=== PATIENT | female | born 1980 | race Caucasian/White ===

== ENCOUNTER 2016-11-14 20:50 | Emergency (ER) | payer MEDICAID, OTHER ==
[~2016-11-14] VITALS: Ht 165.1 cm; Wt 53.1 kg
[~2016-11-14 20:50] MED LIST: ASCO500 PO; CLON1 PO; SOMA350T PO
[2016-11-14 20:55] VITALS: BP 94/56; PULSE 114; RESP 20; TEMP 98.4; O2SAT 100
[2016-11-14] MEDS ORDERED: SOMA350T PO (21:16)
[2016-11-14] MEDS ORDERED: CLON1TAB PO (21:16)
[2016-11-14 21:17] VITALS: RESP 18; O2SAT 100
--- NOTE | 2016-11-14 21:18 | PD ---
HPI Chief Complaint: Dizziness Time Seen by Provider: 21:01 Travel History International Travel<30 days: No Contact w/Intl Traveler<30days: No Traveled to known affect area: No History of Present Illness HPI 36-year-old female with multiple complaints. Patient complaining dizziness, generalized weakness, palpitation, slurred speech, headache, nausea, chest pain , abdominal pain. Patient states that symptoms started 3 months ago. Patient states that her chest pain is sharp stabbing pain intermittent pain localized to lower rib cage area. Patient denies any pain radiation. Patient denies any coughing congestion. Patient states that she has intermittent nausea but no vomiting or diarrhea. Patient states that she has intermittent sharp abdominal pain. Patient has history recurrent UTI and was treated recently with Z-Bronson. Patient states that she has intermittent numbness of the extremity. Patient denies any illicit drugs or alcohol abuse. Patient has history of anxiety and chronic back pain. Patient has been taking lorazepam and Soma. PFSH Past Medical History Arthritis: No Asthma: No Blood Disorders: No Anxiety: Yes Depression: Yes Heart Rhythm Problems: No Cancer: No Cardiovascular Problems: No High Cholesterol: No Chest Pain: No Congestive Heart Failure: No COPD: No Cerebrovascular Accident: No Diminished Hearing: No Endocrine: No GERD: Yes Genitourinary: Yes (poly cystic kidney disease) Headaches: No Hypertension: No Immune Disorder: No Musculoskeletal: Yes (COMPRESSION FX L1 2005- NO SURGERY) Neurologic: No Psychiatric: No Reproductive: No Respiratory: No Immunizations Current: No Migraines: No Myocardial Infarction: No Seizures: No Sleep Apnea: No ?: Not LMP: 11-07-16 : 3 Para: 1 : 2 Past Surgical History AICD: No Arteriovenous Shunt: No Insulin Pump: No Joint Replacement: No Pacemaker: No Other Surgery: Yes (1999--BREAST AUGMENTATION) Social History Alcohol Use: No Tobacco Use: Yes (occas. cigs) Substance Use: No Allergies-Medications (Allergen,Severity, Reaction): Coded Allergies: Sulfa (Verified Allergy, Mild, "HIVES,VOMITING", 11/14/16) Cipro (Verified Allergy, Unknown, N/V, 11/14/16) Reported Meds & Prescriptions Reported Meds & Active Scripts Active Reported Clonazepam 1 Mg Tab 1 Mg PO BID Soma (Carisoprodol) 350 Mg Tab 350 Mg PO QID PRN Review of Systems General / Constitutional: No: Fever Eyes: No: Visual changes HENT: Positive: Headaches Cardiovascular: Positive: Chest Pain or Discomfort, Palpitations Respiratory: No: Shortness of Breath Gastrointestinal: Positive: Nausea, Abdominal Pain Genitourinary: No: Dysuria Musculoskeletal: No: Pain Skin: No Rash Neurologic: No: Weakness Psychiatric: No: Depression Endocrine: No: Polydipsia Hematologic/Lymphatic: No: Easy Bruising Physical Exam Narrative GENERAL: Well-nourished, well-developed patient. SKIN: Warm and dry. HEAD: Normocephalic. EYES: No scleral icterus. No injection or drainage. Pupils 2 mm equal reactive. NECK: Supple, trachea midline. No JVD or lymphadenopathy. CARDIOVASCULAR: Regular rate and rhythm without murmurs, gallops, or rubs. RESPIRATORY: Breath sounds equal bilaterally. No accessory muscle use. GASTROINTESTINAL: Abdomen soft, non-tender, nondistended. MUSCULOSKELETAL: No cyanosis, or edema. BACK: Nontender without obvious deformity. No CVA tenderness. Neurologic exam normal. Data Data Last Documented VS Vital Signs Date Time Temp Pulse Resp B/P Pulse Ox O2 Delivery O2 Flow Rate FiO2 11/14/16 22:15 97 18 106/54 100 Room Air 11/14/16 20:55 98.4 Orders Electrocardiogram (11/14/16 21:11) Complete Blood Count With Diff (11/14/16 21:11) Comprehensive Metabolic Panel (11/14/16 21:11) Creatine Kinase (Cpk) (11/14/16 21:11) Troponin I (11/14/16 21:11) Urinalysis - C+S If Indicated (11/14/16 21:11) Thyroid Stimulating Hormone (11/14/16 21:11) Chest, Single Ap (11/14/16 21:11) Ct Brain W/O Iv Contrast(Rout) (11/14/16 21:11) Iv Access Insert/Monitor (11/14/16 21:11) Ecg Monitoring (11/14/16 21:11) Oximetry (11/14/16 21:11) Ed Urine Pregnancytest Poc (11/14/16 21:11) Drug Screen, Random Urine (11/14/16 21:11) Alcohol (Ethanol) (11/14/16 21:11) Labs Laboratory Tests Test 11/14/16 11/14/16 21:35 21:40 Urine Color YELLOW Urine Turbidity CLEAR Urine pH 7.0 Urine Specific [place] 1.029 Urine Protein NEG mg/dL Urine Glucose (UA) NEG mg/dL Urine Ketones TRACE mg/dL Urine Occult Blood NEG Urine Nitrite NEG Urine Bilirubin NEG Urine Leukocyte Esterase NEG Urine RBC 0-3 /hpf Urine WBC 6-8 /hpf Urine Squamous Epithelial 0-5 /hpf Cells Urine Mucus FEW /lpf Microscopic Urinalysis Comment CULT NOT INDICATED Urine Barbiturates Screen NEG Urine Amphetamines Screen NEG Urine Benzodiazepines Screen NEG Urine Cannabinoids Screen NEG White Blood Count 5.2 TH/MM3 Red Blood Count 4.16 MIL/MM3 Hemoglobin 12.6 GM/DL Hematocrit 38.6 % Mean Corpuscular Volume 92.9 FL Mean Corpuscular Hemoglobin 30.3 PG Mean Corpuscular Hemoglobin 32.6 % Concent Red Cell Distribution Width 13.1 % Platelet Count 210 TH/MM3 Mean Platelet Volume 8.8 FL Neutrophils (%) (Auto) 43.9 % Lymphocytes (%) (Auto) 49.2 % Monocytes (%) (Auto) 4.3 % Eosinophils (%) (Auto) 1.1 % Basophils (%) (Auto) 1.5 % Neutrophils # (Auto) 2.3 TH/MM3 Lymphocytes # (Auto) 2.5 TH/MM3 Monocytes # (Auto) 0.2 TH/MM3 Eosinophils # (Auto) 0.1 TH/MM3 Basophils # (Auto) 0.1 TH/MM3 CBC Comment DIFF FINAL Differential Comment Sodium Level 142 MEQ/L Potassium Level 3.4 MEQ/L Chloride Level 106 MEQ/L Carbon Dioxide Level 29.8 MEQ/L Anion Gap 6 MEQ/L Blood Urea Nitrogen 7 MG/DL Creatinine 0.68 MG/DL Estimat Glomerular Filtration 98 ML/MIN Rate Random Glucose 80 MG/DL Calcium Level 8.2 MG/DL Total Bilirubin 0.2 MG/DL Aspartate Amino Transf 13 U/L (AST/SGOT) Alanine Aminotransferase 18 U/L (ALT/SGPT) Total Protein 7.1 GM/DL Albumin 3.9 GM/DL Ethyl Alcohol Level LESS THAN 3 MG/DL MDM Medical Decision Making Medical Screen Exam Complete: Yes Emergency Medical Condition: Yes Interpretation(s) Last Impressions Chest X-Ray 11/14/161 Signed Impressions: Service Date/Time: Monday, November 14, 2016 21:24 - CONCLUSION: No acute disease. Mg James MD 22:15 PM. CBC within normal limit. WBC 5.2. 49 lymphocytes. Potassium 3.4. Calcium 8.2. UA 6-8 WBC. 22:33 PM. Cardiac enzymes are normal. TSH normal. Urine drug screen negative. Alcohol negative. CT scan of the brain negative acute pathology. Differential Diagnosis Differential diagnosis including viral syndrome, migraine headache, tension headache, cluster headache, atypical chest pain, angina, MN, PE, pneumothorax, gastritis, PUD, pancreatitis, cholecystitis, colitis, UTI, pyelonephritis. Narrative Course 36-year-old female with multiple complaints including headache, palpitation, chest pain, abdominal pain, nausea, numbness of extremity. KCl 20 mEq by mouth given. Diagnosis Primary Impression: Cephalgia Qualified Code: R51 - Nonintractable episodic headache, unspecified headache type Additional Impressions: Viral syndrome Hypokalemia Patient Instructions: General Instructions Additional Instructions: Encourage by mouth fluid. Eat potassium rich diet. Follow-up with personal physician. Return if persistent problem or worse. Med/Other Pt SpecificInfo: No Change to Meds Disposition: 01 DISCHARGE HOME Condition: Stable Trevor Kauffman MD Nov 14, 2016 21:18
--- NOTE | 2016-11-14 21:45 | RADHPO ---
EXAM DATE/TIME: 11/14/2016 21:24 [facility] COMPARISON: No previous studies available for comparison. INDICATIONS : Lower left side chest pain. Dizziness and numbness for three months. MEDICAL HISTORY : None. SURGICAL HISTORY : None. ENCOUNTER: Initial ACUITY: 3 months PAIN SCORE: 5/10 LOCATION: Left lower chest FINDINGS: A single view of the chest demonstrates the lungs to be symmetrically aerated without evidence of mas s, infiltrate or effusion. The cardiomediastinal contours are unremarkable. Osseous structures are intact. CONCLUSION: No acute disease. gM James MD on November 14, 2016 at 21:43 Board Certified Radiologist. This report was verified electronically.
[2016-11-14 21:52] LABS: AUTOMATED NEUTROPHIL # 2.3 TH/MM3 (1.8-7.7); BASOPHIL # 0.1 TH/MM3 (0-0.2); BASOPHIL % 1.5 % (0.0-2.0); EOSINOPHIL # 0.1 TH/MM3 (0-0.4); EOSINOPHIL % 1.1 % (0.0-4.0); HEMATOCRIT 38.6 % (35.0-46.0); HEMO FLAGS DIFF FINAL; LYMPH % 49.2 % (9.0-44.0); LYMPHOCYTE # 2.5 TH/MM3 (1.0-4.8); MEAN CELL VOLUME 92.9 FL (80.0-100.0); MEAN CORPUSCULAR HEMOGLOBIN 30.3 PG (27.0-34.0); MEAN CORPUSCULAR HGB CONC 32.6 % (32.0-36.0); MONO % 4.3 % (0.0-8.0); NEUT % 43.9 % (16.0-70.0); PLATELET COUNT 210 TH/MM3 (150-450); RED BLOOD COUNT 4.16 MIL/MM3 (4.00-5.30); RED CELL DISTRIBUTION WIDTH 13.1 % (11.6-17.2); WHITE BLOOD COUNT 5.2 TH/MM3 (4.0-11.0)
[2016-11-14 21:53] LABS: BLOOD, URINE NEG (NEG); GLUCOSE,URINE NEG (NEG); KETONE, URINE TRACE mg/dL (NEG); NITRITE,URINE NEG (NEG)
[2016-11-14 21:57] LABS: URINE COLOR YELLOW (YELLW/STRAW)
[2016-11-14 21:58] LABS: COMMENT (UR) CULT NOT INDICATED; CULTURE IF INDICATED CULT NOT INDICATED; MUCUS URINE FEW /lpf (OCC); RBC, URINE 0-3 /hpf (0-3); SQUAMOUS EPITHELIAL CELL URINE 0-5 /hpf (0-5)
[2016-11-14 22:06] LABS: CHLORIDE 106 MEQ/L (98-107); POTASSIUM 3.4 MEQ/L (3.5-5.1); SODIUM (NA) 142 MEQ/L (136-145)
[2016-11-14 22:09] LABS: AMPHETAMINE, URINE NEG (NEG)
[2016-11-14 22:10] LABS: BARBITURATES, URINE NEG (NEG)
[2016-11-14 22:11] LABS: ANION GAP 6 MEQ/L (5-15); BICARBONATE 29.8 MEQ/L (21.0-32.0); BLOOD UREA NITROGEN 7 MG/DL (7-18)
[2016-11-14 22:13] LABS: ALT (GPT) 18 U/L (10-53)
[2016-11-14 22:14] LABS: AST (GOT) 13 U/L (15-37); GLOMERULAR FILTRATION RATE 98 ML/MIN (>89)
[2016-11-14 22:15] VITALS: BP 106/54; PULSE 97; RESP 18; O2SAT 100
[2016-11-14 22:15] LABS: TOTAL BILIRUBIN ADULT 0.2 MG/DL (0.2-1.0)
[2016-11-14 22:16] LABS: ALKALINE PHOSPHATASE 45 U/L (45-117)
--- NOTE | 2016-11-14 22:19 | RADHPO ---
EXAM DATE/TIME: 11/14/2016 21:55 [facility] COMPARISON: CT BRAIN W/O CONTRAST, September 22, 2015, 12:45. INDICATIONS : Headache and dizziness for three months. RADIATION DOSE: 60.32 CTDIvol (mGy) MEDICAL HISTORY : None SURGICAL HISTORY : None. ENCOUNTER: Initial ACUITY: 3 months PAIN SCALE: 5/10 LOCATION: cranial TECHNIQUE: Multiple contiguous axial images were obtained of the head. Using automated exposure control and adj ustment of the mA and/or kV according to patient size, radiation dose was kept as low as reasonably a chievable to obtain optimal diagnostic quality images. FINDINGS: CEREBRUM: The ventricles are normal for age. No evidence of midline shift, mass lesion, hemorrhage or acute in farction. No extra-axial fluid collections are seen. POSTERIOR FOSSA: The cerebellum and brainstem are intact. The 4th ventricle is midline. The cerebellopontine angle i s unremarkable. EXTRACRANIAL: The visualized portion of the orbits is intact. SKULL: The calvaria is intact. No evidence of skull fracture. CONCLUSION: Normal examination. Gerard Amos MD on November 14, 2016 at 22:16 Board Certified Radiologist. This report was verified electronically.
[2016-11-14 22:29] LABS: COCAINE, URINE NEG (NEG)
[2016-11-14 22:33] LABS: CREATINE KINASE 79 U/L (26-192)
[2016-11-14] MEDS ORDERED: POTASSIUM CHLORIDE 20 MEQ CONTROLLED RELEASE TAB PO ONE (22:45)
[2016-11-14 23:53] VITALS: BP 100/61
--- NOTE | 2016-11-15 11:06 | EKG ---
Date Performed: 11/14/2016 Time Performed: 21:14:42 PTAGE: 36 years EKG: Sinus tachycardia. Poor R wave progression - probable normal variant Septal T wave changes are nonspecific Borderline ECG No significant change from prior electrocardiogram. PREVIOUS TRACING : 12/05/2013 01.28 DOCTOR: Yosef Cisse Interpretating Date/Time 11/15/2016 11:05:02
== END 2016-11-14 23:54 | disposition home or self-care (01) ==
LOC: PHED 20:50
DX: R51 Headache (principal); B34.9 Viral infection, unspecified; E87.6 Hypokalemia; R00.0 Tachycardia, unspecified; R42 Dizziness and giddiness; K21.9 Gastro-esophageal reflux disease without esophagitis; R07.9 Chest pain, unspecified; Z72.0 Tobacco use
CPT/HCPCS: 70450; 71010; 80053; 80307; 81001; 82550; 84443; 84484; 84703; 85025; 93005

== ENCOUNTER 2017-02-08 00:57 | Emergency (ER) | payer OTHER, MEDICAID ==
[~2017-02-08] VITALS: Ht 162.6 cm; Wt 58.0 kg
[~2017-02-08 00:57] MED LIST changes: -ASCO500 PO; -CLON1 PO; +CLON1TAB PO
[2017-02-08 01:09] VITALS: BP 128/89; PULSE 95; RESP 16; TEMP 98.6; O2SAT 98
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
[2017-02-08 01:32] LABS: AUTOMATED NEUTROPHIL # 2.5 TH/MM3 (1.8-7.7); BASOPHIL # 0.1 TH/MM3 (0-0.2); BASOPHIL % 1.7 % (0.0-2.0); EOSINOPHIL # 0.1 TH/MM3 (0-0.4); EOSINOPHIL % 1.8 % (0.0-4.0); HEMATOCRIT 42.1 % (35.0-46.0); LYMPH % 50.7 % (9.0-44.0); LYMPHOCYTE # 3.1 TH/MM3 (1.0-4.8); MEAN CELL VOLUME 95.9 FL (80.0-100.0); MEAN CORPUSCULAR HEMOGLOBIN 31.4 PG (27.0-34.0); MEAN CORPUSCULAR HGB CONC 32.8 % (32.0-36.0); NEUT % 41.8 % (16.0-70.0); PLATELET COUNT 188 TH/MM3 (150-450); RED BLOOD COUNT 4.39 MIL/MM3 (4.00-5.30); RED CELL DISTRIBUTION WIDTH 14.9 % (11.6-17.2)
[2017-02-08 01:38] LABS: AMPHETAMINE, URINE NEG (NEG); BARBITURATES, URINE NEG (NEG); COCAINE, URINE NEG (NEG)
[2017-02-08 01:40] LABS: HEMO FLAGS AUTO DIFF
[2017-02-08 01:52] LABS: ALT (GPT) 19 U/L (10-53); ANION GAP 12 MEQ/L (5-15); AST (GOT) 16 U/L (15-37); BICARBONATE 23.8 MEQ/L (21.0-32.0); BLOOD UREA NITROGEN 5 MG/DL (7-18); CHLORIDE 109 MEQ/L (98-107); GLOMERULAR FILTRATION RATE 187 ML/MIN (>89); POTASSIUM 3.3 MEQ/L (3.5-5.1); SODIUM (NA) 145 MEQ/L (136-145)
[2017-02-08 01:55] LABS: ACETAMINOPHEN LESS THAN 2.0 MCG/ML (10.0-30.0); ALKALINE PHOSPHATASE 53 U/L (45-117); TOTAL BILIRUBIN ADULT 0.4 MG/DL (0.2-1.0)
[2017-02-08 02:10] LABS: PLATELET ESTIMATE SMEAR NORMAL (NORMAL); PLATELET MORPHOLOGY NORMAL (NORMAL); SCAN/DIFF AUTO DIFF CONFIRMED
[2017-02-08] MEDS ORDERED: CLON1TAB PO (07:52)
[2017-02-08 08:00] VITALS: BP 130/78; PULSE 87; RESP 16; O2SAT 98
[2017-02-08 09:08] VITALS: BP 138/77; PULSE 100; RESP 18; O2SAT 98
[2017-02-08 10:25] VITALS: BP 113/58; PULSE 101; RESP 20; O2SAT 99
[2017-02-08 10:27] VITALS: BP 128/79; PULSE 100; RESP 18; O2SAT 95
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
== END 2017-02-08 13:13 | disposition home or self-care (01) ==
LOC: NEPD 00:57 → NEPJ 13:13
DX: F10.129 Alcohol abuse with intoxication, unspecified (principal); F41.9 Anxiety disorder, unspecified; Y90.8 Blood alcohol level of 240 mg/100 ml or more
CPT/HCPCS: 80053; 80307; 84703; 85025; 99284

== ENCOUNTER 2017-06-05 05:36 | Inpatient (IN) | payer MEDICAID ==
[~2017-06-05] VITALS: Ht 165.1 cm; Wt 54.0 kg
[~2017-06-05 05:36] MED LIST changes: +DOCU1CAP39 PO; +MAGN400S PO; +NITR100C4 PO; -SOMA350T PO
[2017-06-05 05:41] VITALS: BP 111/66; PULSE 90; RESP 18; TEMP 98.7
[2017-06-05] MEDS ORDERED: AMBI5TAB PO (05:41)
[2017-06-05 06:00] LABS: AUTOMATED NEUTROPHIL # 3.4 TH/MM3 (1.8-7.7); BASOPHIL % 0.7 % (0.0-2.0); EOSINOPHIL % 0.6 % (0.0-4.0); HEMATOCRIT 38.2 % (35.0-46.0); HEMO FLAGS DIFF FINAL; LYMPH % 34.2 % (9.0-44.0); MEAN CELL VOLUME 93.9 FL (80.0-100.0); MEAN CORPUSCULAR HEMOGLOBIN 31.1 PG (27.0-34.0); MEAN CORPUSCULAR HGB CONC 33.1 % (32.0-36.0); MONO % 6.1 % (0.0-8.0); NEUT % 58.4 % (16.0-70.0); PLATELET COUNT 205 TH/MM3 (150-450); RED BLOOD COUNT 4.07 MIL/MM3 (4.00-5.30); RED CELL DISTRIBUTION WIDTH 12.5 % (11.6-17.2); WHITE BLOOD COUNT 5.8 TH/MM3 (4.0-11.0)
[2017-06-05 06:06] LABS: CHLORIDE 109 MEQ/L (98-107); POTASSIUM 3.7 MEQ/L (3.5-5.1); SODIUM (NA) 142 MEQ/L (136-145)
[2017-06-05 06:09] LABS: ANION GAP 7 MEQ/L (5-15); BICARBONATE 25.6 MEQ/L (21.0-32.0); BLOOD UREA NITROGEN 3 MG/DL (7-18); PROTHROMBIN TIME - PATIENT 10.7 SEC (9.8-11.6)
[2017-06-05 06:11] LABS: ALCOHOL 205 MG/DL (0-5)
[2017-06-05 06:12] LABS: ALT (GPT) 17 U/L (10-53); AST (GOT) 14 U/L (15-37); GLOMERULAR FILTRATION RATE 154 ML/MIN (>89)
[2017-06-05 06:14] LABS: TOTAL BILIRUBIN ADULT 0.2 MG/DL (0.2-1.0)
[2017-06-05 06:15] LABS: ALKALINE PHOSPHATASE 46 U/L (45-117)
[2017-06-05 06:17] LABS: BETA HCG QUANT LESS THAN 1 MIU/ML (0-5)
--- NOTE | 2017-06-05 06:24 | PD ---
HPI Chief Complaint: Injury Time Seen by Provider: 05:43 Travel History International Travel<30 days: No Contact w/Intl Traveler<30days: No Traveled to known affect area: No History of Present Illness HPI The patient is a 37-year-old right-hand dominant female that apparently fell out of bed and landed on her left extended wrist approximately 0 5:30 this morning. She called the ambulance and she received a total of 5 mg of morphine and 4 mg of Zofran and 1 L of fluid. She denies any other injury. She admits to drinking 7 beers tonight. 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 PFSH Past Medical History Arthritis: No Asthma: No Blood Disorders: No Anxiety: Yes Depression: Yes Heart Rhythm Problems: No Cancer: No Cardiovascular Problems: Yes High Cholesterol: No Chest Pain: No Congestive Heart Failure: No COPD: No Cerebrovascular Accident: No Diminished Hearing: No Endocrine: No Gastrointestinal Disorders: No GERD: Yes Genitourinary: Yes Headaches: No Hypertension: No Immune Disorder: No Insomnia: Yes Musculoskeletal: Yes Neurologic: No Psychiatric: No Reproductive: No Respiratory: Yes Immunizations Current: Yes Migraines: No Myocardial Infarction: No Seizures: No Sleep Apnea: Yes Tetanus Vaccination: < 5 Years Influenza Vaccination: No ?: Not LMP: 06-05-17 : 3 Para: 1 : 2 Past Surgical History Surgical History: No Previous Surgery AICD: No Arteriovenous Shunt: No Insulin Pump: No Joint Replacement: No Pacemaker: No Other Surgery: Yes (1999--BREAST AUGMENTATION) Social History Alcohol Use: Yes Tobacco Use: Yes Substance Use: No Allergies-Medications (Allergen,Severity, Reaction): Coded Allergies: Sulfa (Sulfonamide Antibiotics) (Unverified Allergy, Mild, "HIVES,VOMITING ", 06/05/17) ciprofloxacin (Unverified Allergy, Unknown, N/V, 06/05/17) Reported Meds & Prescriptions Reported Meds & Active Scripts Active Reported Ambien (Zolpidem Tartrate) 5 Mg Tab 5 Mg PO HS PRN Clonazepam 1 Mg Tab 1 Mg PO BID Review of Systems Except as stated in HPI: all other systems reviewed are Neg Physical Exam Narrative GENERAL: The patient has an obvious dorsal deformity of the wrist. Her vital signs are normal. She does not appear clinically intoxicated. SKIN: Focused skin assessment warm/dry. HEAD: Atraumatic. Normocephalic. EYES: Pupils equal and round. No scleral icterus. No injection or drainage. ENT: No nasal bleeding or discharge. Mucous membranes pink and moist. NECK: Trachea midline. No JVD. CARDIOVASCULAR: Regular rate and rhythm. No murmur appreciated. RESPIRATORY: No accessory muscle use. Clear to auscultation. Breath sounds equal bilaterally. GASTROINTESTINAL: Abdomen soft, non-tender, nondistended. Hepatic and splenic margins not palpable. MUSCULOSKELETAL: The patient has an obvious deformity consistent with falling on extended wrist. She has good capillary refill and pinprick distally. No clubbing. No cyanosis. No edema. She has good warmth on the hand and good movement of the fingers except with pain. NEUROLOGICAL: Awake and alert. No obvious cranial nerve deficits. Motor grossly within normal limits. Normal speech. PSYCHIATRIC: Appropriate mood and affect; insight and judgment normal. Data Data Last Documented VS Vital Signs Date Time Temp Pulse Resp B/P (MAP) Pulse Ox O2 Delivery O2 Flow Rate FiO2 06/05/17 05:41 98.7 90 18 111/66 (81) Orders Orders Complete Blood Count With Diff (06/05/17 05:44) Comprehensive Metabolic Panel (06/05/17 05:44) Urinalysis - C+S If Indicated (06/05/17 05:44) Alcohol (Ethanol) (06/05/17 05:44) Beta Hcg (Quant/Titer) (06/05/17 05:44) Prothrombin Time / Inr (Pt) (06/05/17 05:52) Act Partial Throm Time (Ptt) (06/05/17 05:52) Forearm (2vws) (06/05/17 05:44) Ice/Cold Pack (06/05/17 06:07) Chest, Single Ap (06/05/17 06:32) Splint Or Brace Apply/Monitor (06/05/17 06:33) Morphine Inj (Morphine Inj) (06/05/17 06:45) Ondansetron Inj (Zofran Inj) (06/05/17 06:45) Labs Laboratory Tests Test 06/05/17 05:55 White Blood Count 5.8 TH/MM3 Red Blood Count 4.07 MIL/MM3 Hemoglobin 12.6 GM/DL Hematocrit 38.2 % Mean Corpuscular Volume 93.9 FL Mean Corpuscular Hemoglobin 31.1 PG Mean Corpuscular Hemoglobin Concent 33.1 % Red Cell Distribution Width 12.5 % Platelet Count 205 TH/MM3 Mean Platelet Volume 8.2 FL Neutrophils (%) (Auto) 58.4 % Lymphocytes (%) (Auto) 34.2 % Monocytes (%) (Auto) 6.1 % Eosinophils (%) (Auto) 0.6 % Basophils (%) (Auto) 0.7 % Neutrophils # (Auto) 3.4 TH/MM3 Lymphocytes # (Auto) 2.0 TH/MM3 Monocytes # (Auto) 0.4 TH/MM3 Eosinophils # (Auto) 0.0 TH/MM3 Basophils # (Auto) 0.0 TH/MM3 CBC Comment DIFF FINAL Differential Comment Prothrombin Time 10.7 SEC Prothromb Time International Ratio 1.0 RATIO Activated Partial Thromboplast Time 21.0 SEC Blood Urea Nitrogen 3 MG/DL Creatinine 0.46 MG/DL Random Glucose 118 MG/DL Total Protein 6.9 GM/DL Albumin 3.8 GM/DL Calcium Level 7.7 MG/DL Alkaline Phosphatase 46 U/L Aspartate Amino Transf (AST/SGOT) 14 U/L Alanine Aminotransferase (ALT/SGPT) 17 U/L Total Bilirubin 0.2 MG/DL Sodium Level 142 MEQ/L Potassium Level 3.7 MEQ/L Chloride Level 109 MEQ/L Carbon Dioxide Level 25.6 MEQ/L Anion Gap 7 MEQ/L Estimat Glomerular Filtration Rate 154 ML/MIN Human Chorionic Gonadotropin, Quant LESS THAN 1 MIU/ML Ethyl Alcohol Level 205 MG/DL MDM Medical Decision Making Medical Screen Exam Complete: Yes Emergency Medical Condition: Yes Medical Record Reviewed: Yes Interpretation(s) X-rays show about half centimeter dorsal displacement of the distal radius fragment that appears to go through the old epiphysis. I do not see any fracture line into the joint. There is also an ulnar styloid fracture. Differential Diagnosis Fracture distal radius, fracture ulna, fracture forearm, alcohol intoxication Narrative Course The patient displaced fracture of the distal radius and ulnar styloid which needs to be fixed. The patient will be transferred to [facility], I discussed the patient with Dr. Smith. Physician Communication Physician Communication I discussed the patient with Dr. Smith, I claudio admit the patient to her at [facility]. Diagnosis Primary Impression: Fracture of distal radius and ulna Additional Impression: Alcohol abuse Admitting Information Admitting Physician Requests: Admit Chava Bhakta MD Jun 05, 2017 06:24
[2017-06-05] MEDS ORDERED: MORPHINE SULFATE 4 MG/ML INJ IV PUSH ONE (06:45)
[2017-06-05] MEDS ORDERED: ONDANSETRON HCL 4 MG/2 ML VIAL IV ONE (06:45)
--- NOTE | 2017-06-05 06:45 | RADRPT ---
EXAM DATE/TIME: 06/05/2017 05:50 [facility] COMPARISON: No previous studies available for comparison. INDICATIONS : Left forearm pain post fall. MEDICAL HISTORY : None. SURGICAL HISTORY : None. ENCOUNTER: Initial ACUITY: 1 day PAIN SCORE: 10/10 LOCATION: Left upper extremity FINDINGS: 3 views of the forearm reveal an acute fracture involving the distal radial metaphysis. There is dors al displacement of the distal fracture fragment. Ulnar styloid fracture also observed. Remaining fore arm is intact. CONCLUSION: Distal radial and ulnar styloid fractures as detailed above. Miguel Mccall Jr., MD on June 05, 2017 at 6:43 Board Certified Radiologist. This report was verified electronically.
[2017-06-05] MEDS ORDERED: NALOXONE HCL 0.4 MG/ML AMP IV PUSH PRN (07:30)
[2017-06-05] MEDS ORDERED: diphenhydrAMINE HCL 25 MG CAP PO PRN (07:30)
[2017-06-05] MEDS ORDERED: ACETAMINOPHEN/HYDROcodone 325 MG/5 MG TAB PO PRN (07:30)
[2017-06-05] MEDS ORDERED: SODIUM CHLORIDE 0.9% FLUSH 10 ML FLUSH IV FLUSH PRN (07:30)
[2017-06-05] MEDS ORDERED: diphenhydrAMINE HCL 50 MG/ML VIAL IV PUSH PRN (07:30)
[2017-06-05] MEDS ORDERED: DOCUSATE SODIUM 100 MG CAP PO PRN (07:30)
--- NOTE | 2017-06-05 07:39 | RADRPT ---
EXAM DATE/TIME: 06/05/2017 07:28 [facility] COMPARISON: FOREARM LEFT (2VWS), June 05, 2017, 5:50. INDICATIONS : Chest pains, short of breath MEDICAL HISTORY : None. SURGICAL HISTORY : None. ENCOUNTER: Subsequent ACUITY: 1 day PAIN SCORE: 4/10 LOCATION: Bilateral chest FINDINGS: A single view of the chest demonstrates the lungs to be symmetrically aerated without evidence of mas s, infiltrate or effusion. The cardiomediastinal contours are unremarkable. Osseous structures are intact. CONCLUSION: 1. No acute cardiopulmonary findings. Stephon Dey MD on June 05, 2017 at 7:37 Board Certified Radiologist. This report was verified electronically.
[2017-06-05 08:09] VITALS: BP 115/69
[2017-06-05] MEDS: MORPHINE SULFATE 8 MG/ML INJ IV PUSH PRN ×5 (09:02→22:38)
[2017-06-05] MEDS: SODIUM CHLORIDE 0.9% FLUSH 10 ML FLUSH IV FLUSH SCH ×2 (09:09→21:45)
[2017-06-05 12:00] VITALS: BP 98/57; PULSE 77; RESP 16; TEMP 97.6; O2SAT 100
[2017-06-05] MEDS: ONDANSETRON HCL 4 MG/2 ML VIAL IV PUSH PRN ×2 (12:15→19:53)
[2017-06-05] MEDS: ACETAMINOPHEN/HYDROcodone 325 MG/5 MG TAB PO PRN ×2 (14:53→21:45)
[2017-06-05 16:00] VITALS: BP 121/70; PULSE 79; RESP 16; TEMP 97.2; O2SAT 99
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
[2017-06-05 19:30] VITALS: BP 116/71; PULSE 90; RESP 16; TEMP 97.6; O2SAT 100
[2017-06-05] MEDS: clonazePAM 1 MG TAB PO SCH (21:44)
[2017-06-06] VITALS (7 sets, daily range): BP systolic 104–139; BP diastolic 57–85; PULSE 64–90; RESP 16–18; TEMP 96.4–99.4; O2SAT 99–100
[2017-06-06] MEDS: MORPHINE SULFATE 8 MG/ML INJ IV PUSH PRN ×2 (01:30→04:32)
[2017-06-06] MEDS: ZOLPIDEM TARTRATE 5 MG TAB PO PRN (02:00)
[2017-06-06] MEDS: ACETAMINOPHEN/HYDROcodone 325 MG/5 MG TAB PO PRN ×4 (03:47→23:15)
--- NOTE | 2017-06-06 06:43 | PD.ORT.PN ---
Subjective Subjective Remarks Doing well this morning, states she feels tired. Mild pain, but relatively controlled at present Objective Vitals Vital Signs Date Time Temp Pulse Resp B/P (MAP) Pulse Ox O2 Delivery O2 Flow Rate FiO2 06/06/17 04:43 18 06/06/17 04:43 18 06/06/17 03:45 96.6 64 16 116/70 (85) 100 06/06/17 00:20 97.3 65 16 112/69 (83) 99 06/05/17 19:30 97.6 90 16 116/71 (86) 100 06/05/17 16:00 97.2 79 16 121/70 (87) 99 06/05/17 12:00 97.6 77 16 98/57 (71) 100 06/05/17 08:09 88 18 115/69 (84) 98 06/05/17 07:37 18 I/O 06/05/17 06/05/17 06/05/17 06/06/17 06/06/17 06/06/17 07:00 15:00 23:00 07:00 15:00 23:00 Intake Total 1000 ml 1851 ml 240 ml Balance 1000 ml 1851 ml 240 ml Intake Oral 1851 ml 240 ml IV Total 1000 ml # Voids 8 3 # Bowel Movements 0 0 Result Diagram: 06/05/17 0555 06/05/17 0555 Imaging Left distal radius fracture, displace Objective Remarks Awake, NAD LUE: in splint, moving fingers, BCR Assessment & Plan Problem List: (1) Fracture of distal radius and ulna ICD Codes: S52.509A - Unspecified fracture of the lower end of unspecified radius, initial encounter for closed fracture; S52.609A - Unspecified fracture of lower end of unspecified ulna, initial encounter for closed fracture Status: Acute Qualifiers: Qualified Codes: S52.502A - Unspecified fracture of the lower end of left radius, initial encounter for closed fracture; S52.602A - Unspecified fracture of lower end of left ulna, initial encounter for closed fracture Assessment and Plan 37yo F with closed left distal radius fracture 1. NPO for surgery 2. Plan for OR today for ORIF left distal radius. Annita Smith MD Jun 06, 2017 06:43
[2017-06-06] MEDS ORDERED: HYDR-3580 PO (07:02)
[2017-06-06] MEDS ORDERED: GENTAMICIN SULFATE 80 MG/2 ML VIAL ONE (07:13)
[2017-06-06] MEDS ORDERED: VANCOMYCIN HCL 1000 MG VIAL ONE (07:14)
[2017-06-06] MEDS ORDERED: ceFAZolin INJ 1,000 MG VIAL ONE (07:14)
[2017-06-06] MEDS ORDERED: BUPIVACAINE/EPINEPHRINE 0.25% 50 ML VIAL ONE (07:44)
[2017-06-06] MEDS ORDERED: SODIUM CHLORIDE 0.9% FLUSH 10 ML FLUSH IV FLUSH PRN (09:00)
--- NOTE | 2017-06-06 09:00 | HHI.PR ---
cc: nAnita Smith MD Immediate Post Op Note Procedure Date: Jun 06, 2017 Pre Op Diagnosis: (1) Fracture of distal radius and ulna Post Op Diagnosis: as above Surgeon: Annita Smith Outsole Beveler(s): Samuel Ortiz Procedure: ORIF left distal radius fracture, 2-part extraarticular Findings: Left distal ulna styloid fracture Complications: none Specimen(s) removed: none Estimated blood loss: minimal Anesthesia: General Drains: None Patient to: PACU Patient Condition: Good Implant/Devices: SEE IMPLANT LOG (if applicable) Date/Time of Procedure: SEE SURGICAL CARE RECORD Annita Smith MD Jun 06, 2017 09:00
--- NOTE | 2017-06-06 09:24 | RADRPT ---
EXAM DATE/TIME: 06/06/2017 08:48 [facility] COMPARISON: FLUOROSCOPY PORTABLE UP TO 1HR, June 06, 2017, 0:00. INDICATIONS : Left wrist ORIF. MEDICAL HISTORY : None. SURGICAL HISTORY : None. ENCOUNTER: Initial ACUITY: 1 day PAIN SCORE: Non-responsive. LOCATION: Left wrist. FINDINGS: The patient is post plating of a distal radial fracture. The alignment of the radius is excellent. Note is made of an ulnar styloid fracture as well. Alignment of the carpus is anatomic. CONCLUSION: 1. Good alignment of the radius post plating. Stephon Dey MD on June 06, 2017 at 9:22 Board Certified Radiologist. This report was verified electronically.
[2017-06-06] MEDS ORDERED: *morphine SULFATE 8 MG/ML PERIprocedure ONLY ONE (09:37)
[2017-06-06] MEDS ORDERED: *ONDANSETRON 4 MG VIAL PERIprocedural Use ONLY ONE (09:38)
[2017-06-06] MEDS: SODIUM CHLORIDE 0.9% FLUSH 10 ML FLUSH IV FLUSH SCH ×4 (09:40→21:39)
[2017-06-06] MEDS ORDERED: DO NOT ADM ANY ANTICOAGULANT DRUGS PRN (09:45)
[2017-06-06] MEDS: clonazePAM 1 MG TAB PO SCH ×2 (10:42→21:39)
[2017-06-06] MEDS: MORPHINE SULFATE 2 MG/ML INJ IV PUSH PRN ×4 (10:42→21:37)
[2017-06-06] MEDS ORDERED: ONDANSETRON HCL 4 MG/2 ML VIAL IV PUSH ONE (12:00)
[2017-06-06] MEDS ORDERED: LACTATED RINGER'S 1000 ML INJ 1,000 ML IV ONE (12:00)
[2017-06-06] MEDS ORDERED: ePHEDrine/NS 25 MG/5 ML SYR IV ONE (12:00)
[2017-06-06] MEDS ORDERED: PROPOFOL 200 MG/20 ML AMP IV ONE (12:00)
[2017-06-06] MEDS ORDERED: LIDOCAINE HCL 1% PF 5 ML AMPULE OTHER ONE (12:00)
[2017-06-06] MEDS: ONDANSETRON HCL 4 MG/2 ML VIAL IV PUSH PRN ×2 (14:06→17:59)
[2017-06-07] MEDS: MORPHINE SULFATE 2 MG/ML INJ IV PUSH PRN ×2 (00:56→03:26)
[2017-06-07] MEDS: ZOLPIDEM TARTRATE 5 MG TAB PO PRN (00:56)
[2017-06-07 03:30] VITALS: BP 124/76; PULSE 90; RESP 17; TEMP 98.5; O2SAT 97
[2017-06-07] MEDS: ACETAMINOPHEN/HYDROcodone 325 MG/5 MG TAB PO PRN (05:15)
--- NOTE | 2017-06-07 07:06 | PD.ORT.PN ---
Subjective Subjective Remarks Reports wrist pain, but otherwise doing well. States she would like to go home this afternoon Objective Vitals Vital Signs Date Time Temp Pulse Resp B/P (MAP) Pulse Ox O2 Delivery O2 Flow Rate FiO2 06/07/17 05:59 18 06/07/17 03:32 18 06/07/17 03:30 98.5 90 17 124/76 (92) 97 06/06/17 23:10 99.4 90 18 139/85 (103) 100 06/06/17 21:00 98.9 90 16 117/71 (86) 100 06/06/17 16:00 97.9 79 16 112/57 (75) 100 06/06/17 12:00 96.8 77 16 120/73 (89) 99 06/06/17 09:45 98.3 87 16 123/72 (89) 95 Room Air 06/06/17 09:43 96.4 65 16 104/66 (79) 100 06/06/17 09:30 87 16 122/75 (91) 95 Room Air 06/06/17 09:18 98.0 89 16 150/80 (103) 100 Nasal Cannula 2 I/O 06/06/17 06/06/17 06/06/17 06/07/17 06/07/17 06/07/17 07:00 15:00 23:00 07:00 15:00 23:00 Intake Total 240 ml 410 ml 240 ml 240 ml Output Total 5 ml Balance 240 ml 405 ml 240 ml 240 ml Intake Oral 240 ml 240 ml 240 ml IV Total 10 ml Other 400 ml Output Estimated Blood Loss 5 ml # Voids 3 3 3 # Bowel Movements 0 0 0 Result Diagram: 06/05/17 0555 06/05/17 0555 Imaging Left distal radius fracture, displace Objective Remarks Awake, NAD LUE: in splint, moving fingers, BCR Assessment & Plan Ortho Post Op Day #: 1 Problem List: (1) Fracture of distal radius and ulna ICD Codes: S52.509A - Unspecified fracture of the lower end of unspecified radius, initial encounter for closed fracture; S52.609A - Unspecified fracture of lower end of unspecified ulna, initial encounter for closed fracture Status: Acute Qualifiers: Qualified Codes: S52.502A - Unspecified fracture of the lower end of left radius, initial encounter for closed fracture; S52.602A - Unspecified fracture of lower end of left ulna, initial encounter for closed fracture Assessment and Plan 37yo F with closed left distal radius fracture 1. NWB LUE in splint. 2. Encourage ROM of fingers on a daily basis. 3. Will switch norco to percocet and stop morphine 4. D/C home today with follow-up in 2 weeks Annita Smith MD Jun 07, 2017 07:06
[2017-06-07 08:00] VITALS: BP 123/70; PULSE 79; RESP 18; TEMP 97.9; O2SAT 98
[2017-06-07] MEDS: clonazePAM 1 MG TAB PO SCH (08:36)
[2017-06-07] MEDS: SODIUM CHLORIDE 0.9% FLUSH 10 ML FLUSH IV FLUSH SCH (08:36)
[2017-06-07] MEDS: oxyCODONE/ACETAMINOPHEN 5 MG/325 MG TAB PO PRN ×2 (08:36→13:16)
[2017-06-07] MEDS ORDERED: HYDR-3580 PO (10:16)
[2017-06-07 12:00] VITALS: BP 108/68; PULSE 83; RESP 18; TEMP 97.4; O2SAT 97
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
== END 2017-06-07 15:30 | disposition home or self-care (01) | DRG 511 ==
LOC: PHED 05:36 → PHEDA 06:46 → N06A 08:32
PROVIDERS: ADMIT Orthopaedic Surgery Orthopaedic Surgery of the Spine; ATTEND Orthopaedic Surgery Orthopaedic Surgery of the Spine
PROC: 0PSJ04Z Reposition Left Radius with Internal Fixation Device, Open Approach (ICD-10-PCS; principal; 2017-06-05)
DX: S52.592A Other fractures of lower end of left radius, initial encounter for closed fracture (principal); Q61.3 Polycystic kidney, unspecified; S52.612A Displaced fracture of left ulna styloid process, initial encounter for closed fracture; W06.XXXA Fall from bed, initial encounter; Y93.89 Activity, other specified; Y92.003 Bedroom of unspecified non-institutional (private) residence as the place of occurrence of the external cause; Y90.7 Blood alcohol level of 200-239 mg/100 ml; Z72.0 Tobacco use; F41.9 Anxiety disorder, unspecified
CPT/HCPCS: 71010; 73090; 73100; 76000; 80053; 80307; 84702; 85025; 85610; 85730; 96374; 96375; C1713; J0690; J1580; J2270; J2405; J3010; J3370; J7120